=== PATIENT | female | born 1980 | race Caucasian/White ===

== ENCOUNTER 2019-08-24 20:00 | Emergency (ER) | payer OTHER ==
[~2019-08-24] VITALS: Ht 154.9 cm; Wt 60.0 kg
[~2019-08-24 20:00] MED LIST: ALLO100T GT; COLC0.6T PO; IBP800T PO; OMEP20CA12 PO
[2019-08-24] MEDS ORDERED: LORazepam INJ 2 MG/ML (ATIVAN) VIAL IVP PRN (20:15)
--- NOTE | 2019-08-24 20:21 | ED General ---
General Stated Complaint: DETOX Source of Information: Patient Exam Limitations: No Limitations History of Present Illness Date Seen by Provider: Aug 24, 2019 Time Seen by Provider: 20:17 Initial Comments To ER per EMS from addiction treatment Center in [place] with reports of anxiousness and jitters. She arrived to the addiction treatment Center today at about 11 AM, her last drink of alcohol was this morning, last night she had 4 for local 6 and a 12 pack of beer. Typically she drinks a 12 pack of beer Per day. Addiction treatment Center staff [facility] called to report that they can take the patient back after ER visit if cleared but they would need an order for prescription for a medication taper to help with her symptoms. Allergies and Home Medications Allergies Coded Allergies: No Known Drug Allergies (Unverified , 06/17/13) Home Medications Allopurinol 100 Mg Tab, 100 MG GT UD Prescribed by: STEVO GUTIERREZ on 06/17/131654 Chlordiazepoxide HCl 25 Mg Capsule, 25 MG PO UD Alcohol withdrawal taper: 2 tablets every 6 hours 4 doses then 1 tablets every 6 hours 8 doses Prescribed by: SHERRI HOPSON on 08/24/192111 Colchicine 0.6 Mg Tablet, 0.6 MG PO BID Prescribed by: STEVO GUTIERREZ on 06/17/13 165 Ibuprofen 800 Mg Tab, 800 MG PO QID Prescribed by: STEVO GUTIERREZ on 06/17/131654 Metoprolol Succinate 50 Mg Tab.er.24h, 50 MG PO DAILY Prescribed by: SHERRI HOPSON on 08/24/192110 Omeprazole 20 Mg Capsule.dr, 1 CAP PO DAILY, (Reported) Thiamine Mononitrate 100 Mg Tablet, 100 MG PO DAILY Prescribed by: SHERRI HOPSON on 08/24/192100 Patient Home Medication List Home Medication List Reviewed: Yes Review of Systems Review of Systems Constitutional: see HPI; No diaphoresis EENTM: see HPI Respiratory: no symptoms reported Cardiovascular: no symptoms reported Genitourinary: no symptoms reported Musculoskeletal: no symptoms reported Skin: no symptoms reported Psychiatric/Neurological: Anxiety Hematologic/Lymphatic: No Symptoms Reported Immunological/Allergic: no symptoms reported Past Piyroae-Hdvpwf-Tfhtls Hx Past Medical History Reproductive Disorders: No Physical Exam Vital Signs Vital Signs - First Documented 08/24/19 20:02 Temp 36.6 Pulse 79 Resp 18 B/P (MAP) 151/99 (116) O2 Delivery Room Air Capillary Refill : Height, Weight, BMI Height: '" Weight: 166lbs. oz. 75.271447bt; BMI Method:Stated General Appearance: No Apparent Distress, WD/WN, Anxious Eyes: Bilateral Eye Normal Inspection, Bilateral Eye PERRL, Bilateral Eye EOMI HEENT: PERRL/EOMI, TMs Normal Neck: Full Range of Motion, Normal Inspection Respiratory: No Accessory Muscle Use, No Respiratory Distress Cardiovascular: Regular Rate, Rhythm, Normal Peripheral Pulses Gastrointestinal: Non Tender, Soft Extremity: Normal Capillary Refill, Normal Inspection Neurologic/Psychiatric: Alert, Oriented x3 Skin: Normal Color, Warm/Dry Progress/Results/Core Measures Suspected Sepsis SIRS Temperature: Pulse: Respiratory Rate: Laboratory Tests 08/24/19 20:10: White Blood Count 17.0H Blood Pressure / Mean: Laboratory Tests 08/24/19 20:10: Creatinine 0.74, INR Comment 0.9, Platelet Count 403H, Total Bilirubin 0.6 Results/Orders Lab Results Laboratory Tests Test 08/24/19 20:10 08/24/19 20:32 Range/Units White Blood Count 17.0 H 4.3-11.0 10^3/uL Red Blood Count 4.70 4.35-5.85 10^6/uL Hemoglobin 14.2 11.5-16.0 G/DL Hematocrit 43 35-52 % Mean Corpuscular Volume 91 80-99 FL Mean Corpuscular Hemoglobin 30 25-34 PG Mean Corpuscular Hemoglobin Concent 33 32-36 G/DL Red Cell Distribution Width 14.1 10.0-14.5 % Platelet Count 403 H 130-400 10^3/uL Mean Platelet Volume 8.4 7.4-10.4 FL Neutrophils (%) (Auto) 76 H 42-75 % Lymphocytes (%) (Auto) 17 12-44 % Monocytes (%) (Auto) 6 0-12 % Eosinophils (%) (Auto) 1 0-10 % Basophils (%) (Auto) 0 0-10 % Neutrophils # (Auto) 13.0 H 1.8-7.8 X 10^3 Lymphocytes # (Auto) 2.9 1.0-4.0 X 10^3 Monocytes # (Auto) 0.9 0.0-1.0 X 10^3 Eosinophils # (Auto) 0.1 0.0-0.3 10^3/uL Basophils # (Auto) 0.1 0.0-0.1 10^3/uL Neutrophils % (Manual) 75 % Lymphocytes % (Manual) 18 % Monocytes % (Manual) 4 % Eosinophils % (Manual) 2 % Basophils % (Manual) 1 % Toxic Granulation 1+ Dohle Bodies SLIGHT Blood Morphology Comment NORMAL Prothrombin Time 12.2 12.2-14.7 SEC INR Comment 0.9 0.8-1.4 Sodium Level 139 135-145 MMOL/L Potassium Level 3.9 3.6-5.0 MMOL/L Chloride Level 101 98-107 MMOL/L Carbon Dioxide Level 25 21-32 MMOL/L Anion Gap 13 5-14 MMOL/L Blood Urea Nitrogen 15 7-18 MG/DL Creatinine 0.74 0.60-1.30 MG/DL Estimat Glomerular Filtration Rate > 60 BUN/Creatinine Ratio 20 Glucose Level 97 70-105 MG/DL Calcium Level 9.9 8.5-10.1 MG/DL Corrected Calcium 8.5-10.1 MG/DL Total Bilirubin 0.6 0.1-1.0 MG/DL Aspartate Amino Transf (AST/SGOT) 27 5-34 U/L Alanine Aminotransferase (ALT/SGPT) 17 0-55 U/L Alkaline Phosphatase 78 40-136 U/L Total Protein 8.0 6.4-8.2 GM/DL Albumin 4.7 H 3.2-4.5 GM/DL Lipase 33 8-78 U/L Serum Test, Qualitative NEGATIVE NEGATIVE Salicylates Level < 5.0 L 5.0-20.0 MG/DL Acetaminophen Level < 10 L 10-30 UG/ML Serum Alcohol < 10 <10 MG/DL Urine Color YELLOW Urine Clarity CLEAR Urine pH 6.5 5-9 Urine Specific [place] 1.015 L 1.016-1.022 Urine Protein 1+ H NEGATIVE Urine Glucose (UA) NEGATIVE NEGATIVE Urine Ketones NEGATIVE NEGATIVE Urine Nitrite NEGATIVE NEGATIVE Urine Bilirubin NEGATIVE NEGATIVE Urine Urobilinogen NORMAL NORMAL MG/DL Urine Leukocyte Esterase NEGATIVE NEGATIVE Urine RBC (Auto) NEGATIVE NEGATIVE Urine RBC NONE /HPF Urine WBC NONE /HPF Urine Squamous Epithelial Cells 0-2 /HPF Urine Crystals NONE /LPF Urine Bacteria NEGATIVE /HPF Urine Casts NONE /LPF Urine Mucus NEGATIVE /LPF Urine Culture Indicated NO Urine Opiates Screen NEGATIVE NEGATIVE Urine Oxycodone Screen NEGATIVE NEGATIVE Urine Methadone Screen NEGATIVE NEGATIVE Urine Propoxyphene Screen NEGATIVE NEGATIVE Urine Barbiturates Screen NEGATIVE NEGATIVE Ur Tricyclic Antidepressants Screen NEGATIVE NEGATIVE Urine Phencyclidine Screen NEGATIVE NEGATIVE Urine Amphetamines Screen NEGATIVE NEGATIVE Urine Methamphetamines Screen NEGATIVE NEGATIVE Urine Benzodiazepines Screen POSITIVE H NEGATIVE Urine Cocaine Screen NEGATIVE NEGATIVE Urine Cannabinoids Screen POSITIVE H NEGATIVE My Orders Orders - SHERRI HOPSON APRN Alcohol (08/24/19 20:10) Cbc With Automated Diff (08/24/19 20:10) Salicylate (08/24/19 20:10) Acetaminophen (08/24/19 20:10) Ua Culture If Indicated (08/24/19 20:10) Drug Screen Stat (Urine) (08/24/19 20:10) Hcg,Qualitative Serum (08/24/19 20:10) Ed Iv/Invasive Line Start (08/24/19 20:10) Comprehensive Metabolic Panel (08/24/19 20:10) Lipase (08/24/19 20:10) Protime With Inr (08/24/19 20:10) Lorazepam Injection (Ativan Injection) (08/24/19 20:15) Manual Differential (08/24/19 20:10) Chlordiazepoxide Capsule (Nf) (Librium C (08/24/19 21:30) Rx-Lorazepam (Rx-Ativan) (08/24/19 21:37) Ns Iv 1000 Ml (Sodium Chloride 0.9%) (08/24/19 21:45) Medications Given in ED Current Medications Medications Dose Ordered Sig/Angelica Route Start Time Stop Time Status Last Admin Dose Admin Lorazepam 1 mg ONCE PRN IVP 08/24/19 20:15 08/24/19 20:41 1 MG Vital Signs/I&O 08/24/19 20:02 Temp 36.6 Pulse 79 Resp 18 B/P (MAP) 151/99 (116) O2 Delivery Room Air Capillary Refill : Departure Communication (Admissions) 8696-her blood pressure was initially 151/99, that reduced to 135/92 with a heart rate in the 90s. Both of these blood pressures were taken before the 1 mg of lorazepam IV. Despite an alcohol level less than 10, her only symptoms are sh akiness and anxiousness. There is no hemodynamic instability, no hallucinations, no personal seizure history. Appropriate for outpatient therapy. I will give her a take-home pack of lorazepam, will write for a librium taper and a dose of thiamine daily for 5 days and toprol xl 50mg dialy. I've spoken with addiction treatment Center staff via telephone just prior to this documentation and they're agreeable with this plan as long as they have in order for benzodiazepine taper. Leukocytosis is likely white cell demargination from catecholamine release from her withdrawal symptoms and anxiety. Spoke with Dr. Sullivan, she agrees to discharge to addiction treatment Center and they can have Dr. Flor Bañuelos follow-up on the Librium taper in case there is a medication or taper regimen that she prefers over the one I've written. Impression Primary Impression: Alcohol withdrawal syndrome Qualified Codes: F10.230 - Alcohol dependence with withdrawal, uncomplicated Disposition: 65 XFER TO PSYCH HOSP/UNIT Condition: Stable Departure-Patient Inst. Decision time for Depature: 21:01 Patient Instructions: Alcohol Abuse and Alcoholism (DC) Add. Discharge Instructions: 1. Call Dr. Flor Bañuelos tomorrow to make an appointment for follow-up return to ER for any severe anxiety high blood pressure seizure activity or any other concerns. Scripts Chlordiazepoxide HCl (Chlordiazepoxide HCl) 25 Mg Capsule 25 MG PO UD, #16 CAP Alcohol withdrawal taper: 2 tablets every 6 hours 4 doses then 1 tablets every 6 hours 8 doses Prov: SHERRI HOPSON APRN 08/24/19 Metoprolol Succinate (Toprol Xl) 50 Mg Tab.er.24h 50 MG PO DAILY, #14 TAB Prov: SHERRI HOPSON APRN 08/24/19 Thiamine Mononitrate (Vitamin B-1) 100 Mg Tablet 100 MG PO DAILY for 5 Days, #5 TAB Prov: SHERRI HOPSON APRN 08/24/19 Copy Copies To 1: FLOR BAÑUELOS MD, PETER J APRN Aug 24, 2019 20:21 POS
[2019-08-24 20:22] LABS: BASOPHILS # (AUTO) 0.1 10^3/uL (0.0-0.1); BASOPHILS % (AUTO) 0 % (0-10); EOSINOPHILS # (AUTO) 0.1 10^3/uL (0.0-0.3); EOSINOPHILS % (AUTO) 1 % (0-10); HEMATOCRIT 43 % (35-52); HEMOGLOBIN 14.2 G/DL (11.5-16.0); LYMPHOCYTES # (AUTO) 2.9 X 10^3 (1.0-4.0); LYMPHOCYTES % (AUTO) 17 % (12-44); MEAN CORPUSCULAR HEMOGLOBIN 30 PG (25-34); MEAN CORPUSCULAR HGB CONC 33 G/DL (32-36); MEAN CORPUSCULAR VOLUME 91 FL (80-99); MEAN PLATELET VOLUME 8.4 FL (7.4-10.4); MONOCYTES # (AUTO) 0.9 X 10^3 (0.0-1.0); MONOCYTES % (AUTO) 6 % (0-12); NEUTROPHILS % (AUTO) 76 % (42-75); PLATELET COUNT 403 10^3/uL (130-400); RED CELL DISTRIBUTION WIDTH 14.1 % (10.0-14.5)
[2019-08-24 20:36] LABS: INR 0.9 (0.8-1.4); PROTHROMBIN TIME PATIENT 12.2 SEC (12.2-14.7)
[2019-08-24 20:38] LABS: BILIRUBIN,URINE NEGATIVE (NEGATIVE); CLARITY,URINE CLEAR; COLOR,URINE YELLOW; GLUCOSE, URINE (UA) NEGATIVE (NEGATIVE); KETONES,URINE NEGATIVE (NEGATIVE); LEUKOCYTE ESTERASE ,URINE NEGATIVE (NEGATIVE); NITRITE,URINE NEGATIVE (NEGATIVE); PH,URINE 6.5 (5-9); PROTEIN,URINE 1+ (NEGATIVE)
[2019-08-24 20:41] LABS: ALANINE AMINOTRANSFERASE 17 U/L (0-55); ALBUMIN 4.7 GM/DL (3.2-4.5); ALKALINE PHOSPHATASE 78 U/L (40-136); BILIRUBIN,TOTAL 0.6 MG/DL (0.1-1.0); BUN/CREATININE RATIO 20; CALCIUM 9.9 MG/DL (8.5-10.1); CARBON DIOXIDE 25 MMOL/L (21-32); CHLORIDE 101 MMOL/L (98-107); CREATININE SERUM 0.74 MG/DL (0.60-1.30); GFR ESTIMATED > 60; GLUCOSE 97 MG/DL (70-105); LIPASE 33 U/L (8-78); POTASSIUM 3.9 MMOL/L (3.6-5.0); SALICYLATE < 5.0 MG/DL (5.0-20.0); SODIUM 139 MMOL/L (135-145)
[2019-08-24 20:45] LABS: ACETAMINOPHEN < 10 UG/ML (10-30)
[2019-08-24 20:51] LABS: BASOPHILS % (MANUAL) 1 %; EOSINOPHILS % (MANUAL) 2 %; LYMPHOCYTES % (MANUAL) 18 %; MONOCYTES % (MANUAL) 4 %; NEUTROPHILS % (MANUAL) 75 %; RBC MORPH NORMAL
[2019-08-24 20:52] LABS: TOXIC GRANULATION/VACUOLAZATIO 1+
[2019-08-24 20:53] LABS: BACTERIA,URINE NEGATIVE /HPF; SQUAMOUS EPITHELIAL CELL,UR 0-2 /HPF
[2019-08-24 20:54] LABS: AMPHETAMINE SCREEN, URINE NEGATIVE (NEGATIVE); BARBITURATE SCREEN URINE NEGATIVE (NEGATIVE); BENZODIAZEPINES SCREEN URINE POSITIVE (NEGATIVE); CANNABINOID SCREEN, URINE POSITIVE (NEGATIVE); COCAINE SCREEN URINE NEGATIVE (NEGATIVE); METHADONE STAT NEGATIVE (NEGATIVE); METHAMPHETAMINE SCREEN URINE S NEGATIVE (NEGATIVE); OPIATE SCREEN URINE NEGATIVE (NEGATIVE); OXYCODONE STAT NEGATIVE (NEGATIVE); PROPOXYPHENE STAT NEGATIVE (NEGATIVE); TRICYCLIC ANTIDEPRESSANTS SCRE NEGATIVE (NEGATIVE)
[2019-08-24] MEDS ORDERED: LORA2TAB PO (21:01)
[2019-08-24] MEDS ORDERED: THIA100T68 PO (21:01)
[2019-08-24] MEDS ORDERED: CHLO25CA10 PO ×2 (21:11→21:12)
[2019-08-24] MEDS ORDERED: METO-352 PO (21:11)
[2019-08-24] MEDS ORDERED: chlordiazePOXIDE 25 MG (LIBRIUM) CAP NON-FORMULARY PO ONE (21:30)
[2019-08-24] MEDS ORDERED: RX-LORAZEPAM (ATIVAN) 0.5 MG TAB PPK#4 PO STA (21:37)
[2019-08-24] MEDS ORDERED: NS IV 1000 ML 1,000 ML IV SCH (21:45)
[2019-08-24 22:16] VITALS: BP 143/95
--- NOTE | 2019-08-24 22:16 | NUR ---
STAFF FROM [facility] HERE TO TAKE PT TO THEIR FACILITY.
--- OUTSIDE RECORDS SUMMARY | 2019-09-17 16:10 | XMS REPORT | Continuity of Care Document ---
Author Author [facility] POS Organization [facility] SP Address Unknown SP Phone Unavailable SP Care Team Providers Care Pulp Operator Name Role Phone POS NO, LOCAL PHYSICIAN PP Unavailable SP Insurance Providers Payer Name Policy Number Subscriber Name POS Relationship POS Unknown Dhara Hawkins SP Advance Directives Directive Response Recor ded Date POS Advance Directives N 1:13pm POS Health Care Power of Electric Needle Specialist N 06/17/13 SP Organ Donor N 06/17/13 1 :13pm SP Problems No Known Problems or Medical conditions. Social History History Response Recorde d Date/Time POS Alcohol Use Regular Use 06/17/13 1:13pm POS Recreational Drug Use N 06/17/13 1:13pm SP Allergies, Adverse Reactions, Alerts Allergen Type Severity POS Last Updated POS No Known Drug Allergies SP 06/17/13 SP Medications Medication Dose Units POS Sig Qty Days POS Colchicine (Colchicine Tab) 0.6 Mg POS PO BID 20 SP Allopurinol (Zyloprim Tablet) 100 Mg SP GT UD 90 SP Ibuprofen (Motrin) 800 Mg SP QID 90 SP Omeprazole 1 Cap PO SP DAILY SP Response Recorded Date/Time POS Status not known Unknown SP Results No Known Relevant Diagnostic Tests, Laboratory Data and/or Discharge Summary. Encounters Encounter Location Date/ Time POS Registered Emergency Room [facility] SP 12:49pm
--- OUTSIDE RECORDS SUMMARY | 2019-09-17 16:10 | XMS REPORT | Continuity of Care Document ---
Author Organization Unknown POS Address Unknown SP Phone Unavailable SP Allergies Active Description Code Type Severity POS Reaction Onset Reported/Identified POS to Patient Clinical Status POS Yes No Known Drug Allergies [id number] Drug SP Unknown N/A 06/17/2013 SP SP Medications There is no data. Problems Date Dx Coded Attending Type Code POS Diagnosed By POS 08/29/2019 SHERRI HOPSON APRN Ot F10.239 SP ALCOHOL DEPENDENCE WITH WITHDRAWAL, UNSP SP Procedures There is no data. Results Test Result Range POS Complete blood count (CBC) with automate d white blood cell (WBC) differential - POS 20:10 Blood leukocytes automated count (number/volume) 17.0 10*3/uL POS 4.3-11.0 SP Blood erythrocytes automated count (number/volume) 4.70 10*6/uL SP 4.35-5.85 SP Venous blood hemoglobin measurement (mass/volume) 14.2 g/dL SP16.0 Blood hematocrit (volume fraction) 43 % 35-52 SP Automated erythrocyte mean corpuscular volume 91 [ foz_us] SP99 Automated erythrocyte mean corpuscular h emoglobin (mass per erythrocyte) SP 30 pg 25-34 SP Automated erythrocyte mean corpuscular h emoglobin concentration measurement SP 33 g/dL 32-36 SP Automated erythrocyte distribution width ratio 14. 1 % 10.0- SP Automated blood platelet count (count/volume) 403 10*3/uL SP400 Automated blood platelet mean volume measurement 8.4 [foz_us] SP 7.4-10.4 SP Automated blood neutrophils/100 leukocytes 76 % 42-75 SP Automated blood lymphocytes/100 leukocytes 17 % 12-44 SP Blood monocytes/100 leukocytes 6 % 0-12 SP Automated blood eosinophils/100 leukocytes 1 % 0-10 SP Automated blood basophils/100 leukocytes 0 % 0-10 SP Blood neutrophils automated count (number/volume) 13.0 10*3 SP7.8 Blood lymphocytes automated count (number/volume) 2.9 10*3 SP4.0 Blood monocytes automated count (number/volume) 0. 9 10*3 SP1.0 Automated eosinophil count 0.1 10*3/uL 0 .0-0.3 SP Automated blood basophil count (count/volume) 0.1 10*3/uL SP0.1 Serum or plasma choriogonadotropin (preg alia test) detection - 08/24/19 20:10 POS Serum or plasma choriogonadotropin ( test) de tection NEGATIVE POS NEGATIVE SP PT panel in platelet poor plasma by coag ulation assay - 08/24/19 20:10 POS Prothrombin time (PT) in platelet poor plasma by coagu lation assay SP s 12.2-14.7 SP INR in platelet poor plasma or blood by coagulation as say 0.9 SP 0.8-1.4 SP Comprehensive metabolic panel - 08/24/19 20:10 POS Serum or plasma sodium measurement (moles/volume) 139 mmol/L SP 135-145 SP Serum or plasma potassium measurement (moles/volume) 3.9 mmol/L SP 3.6-5.0 SP Serum or plasma chloride measurement (moles/volume) 101 mmol/L SP 98-107 SP Carbon dioxide 25 mmol/L 21-32 SP Serum or plasma anion gap determination (moles/volume) 13 mmol/L SP 5-14 SP Serum or plasma urea nitrogen measurement (mass/volume ) 15 mg/dL SP 7-18 SP Serum or plasma creatinine measurement (mass/volume) 0.74 mg/dL SP 0.60-1.30 SP Serum or plasma urea nitrogen/creatinine mass ratio 20 NRG SP Serum or plasma creatinine measurement w ith calculation of estimated glomerular SP rate > NRG SP Serum or plasma glucose measurement (mass/volume) 97 mg/dL SP105 Serum or plasma calcium measurement (mass/volume) 9.9 mg/dL SP10.1 Serum or plasma total bilirubin measurement (mass/volu me) 0.6 mg/dL SP 0.1-1.0 SP Serum or plasma alkaline phosphatase sarah surement (enzymatic activity/volume) SP 78 U/L 40-136 SP Serum or plasma aspartate aminotransfera se measurement (enzymatic SP 27 U/L 5-34 SP Serum or plasma alanine aminotransferase measurement (enzymatic activity/volume) SP 17 U/L 0-55 SP Serum or plasma protein measurement (mass/volume) 8.0 g/dL SP8.2 Serum or plasma albumin measurement (mass/volume) 4.7 g/dL SP4.5 Lipase - 08/24/19 20:10 POS Lipase 33 U/L 8-78 SP Serum or plasma salicylates measurement (mass/volume) - 08/24/19 20:10 POS Serum or plasma salicylates measurement (mass/volume) < mg/dL SP 5.0-20.0 SP Serum or plasma acetaminophen measuremen t (mass/volume) - 08/24/19 20:10 POS Serum or plasma acetaminophen measurement (mass/volume ) < ug/mL SP 10-30 SP Serum or plasma ethanol measurement (mas s/volume) - 08/24/19 20:10 POS Serum or plasma ethanol measurement (mass/volume) < mg/dL SP Manual absolute plasma cell count - 07/27 11/12 20:10 POS Blood monocytes/100 leukocytes 4 % NRG SP Manual blood segmented neutrophils/100 leukocytes 75 % NRG SP Manual blood lymphocytes/100 leukocytes 18 % NRG SP Manual eosinophils/100 leukocytes in nose 2 % NRG SP Manual blood basophils/100 leukocytes 1 % NRG SP Blood erythrocyte morphology finding identification NORMAL SP Blood toxic granules detection by light microscopy 1+ NRG SP Blood dohle body detection by light microscopy SLI GHT NRG SP Complete urinalysis with reflex to cultu re - 08/24/19 20:32 POS Urine color determination YELLOW NRG SP Urine clarity determination CLEAR NR G SP Urine pH measurement by test strip 6.5 5-9 SP Specific gravity of urine by test strip 1.015 1.016-1.022 SP Urine protein assay by test strip, semi-quantitative 1+ SP Urine glucose detection by automated test strip NE GATIVE SP Erythrocytes detection in urine sediment by light micr oscopy NEGATIVE SP NEGATIVE SP Urine ketones detection by automated test strip NE GATIVE SP Urine nitrite detection by test strip NEGATIVE NEGATIVE SP Urine total bilirubin detection by test strip NEGA TIVE SP Urine urobilinogen measurement by automated test strip (mass/volume) SP NORMAL SP Urine leukocyte esterase detection by dipstick NEG ATIVE SP Automated urine sediment erythrocyte cou nt by microscopy (number/high power SP NONE NRG SP Automated urine sediment leukocyte count by microscopy (number/high power field) SP NONE NRG SP Bacteria detection in urine sediment by light microsco py NEGATIVE SP NRG SP Squamous epithelial cells detection in u rine sediment by light microscopy SP 0-2 NRG SP Crystals detection in urine sediment by light microsco py NONE SP NRG SP Casts detection in urine sediment by light microscopy NONE SP Mucus detection in urine sediment by light microscopy NEGATIVE SP NRG SP Complete urinalysis with reflex to culture NO NRG SP Urine drug screening test - 08/24/19 20: 32 POS Urine phencyclidine detection by screening method NEGATIVE SP Urine benzodiazepines detection by screening method POSITIVE SP NEGATIVE SP Urine cocaine detection NEGATIVE NEGATI VE SP Urine amphetamines detection by screening method N EGATIVE SP Urine methamphetamine detection by screening method NEGATIVE SP NEGATIVE SP Urine cannabinoids detection by screening method P OSITIVE SP Urine opiates detection by screening method NEGATI VE SP Urine barbiturates detection NEGATIVE N EGATIVE SP Screening urine tricyclic antidepressants detection NEGATIVE SP NEGATIVE SP Urine methadone detection by screening method NEGA TIVE SP Urine oxycodone detection NEGATIVE NEGA TIVE SP Urine propoxyphene detection NEGATIVE N EGATIVE SP Encounters ACCT No. Visit Date/Time Discharge Status POS Pt. Type Provider Facility Loc./Un it POS Complaint POS [id number] 08/24/2019 20:02:00 22:18:00 SP DIS Outpatient SHERRI HOPSON APRN [facility] ER DETOX SP [id number] 02/17/2019 15:10:00 019 23:59:59 SP CLS Preadmit ALLEN HANSON TIE INSPECTOR [facility] CARD OTHER CHEST PAIN SP [id number] 02/17/2019 15:08:00 019 23:59:59 SP CLS Preadmit ALLEN HANSON [employer]IE INSPECTOR [facility] CARD OTHER CHEST PAIN SP [id number] 12/29/2013 14:16:00 014 23:59:59 SP CLS Outpatient SP [id number] 06/17/2013 12:49:00 013 17:06:00 SP DIS Emergency SP
== END 2019-08-24 22:18 ==
LOC: EDUNIT# 20:00 → ER 20:02
DX: F10.239 Alcohol dependence with withdrawal, unspecified (principal)
CPT/HCPCS: 36415; 80053; 80306; 80320; 80329; 81000; 83690; 84703; 85007; 85027; 85610; 96361; 96374